=== PATIENT | female | born 1945 | race Caucasian/White ===

== ENCOUNTER 2017-02-27 00:17 | Inpatient (IN) | payer OTHER ==
[~2017-02-27] VITALS: Ht 175.3 cm; Wt 99.3 kg
--- NOTE | ~2017-02-27 | H ---
[facility] [place] [address] HISTORY AND PHYSICAL Name: PABLO CORDOBA Room #: 535-P ADM IN M.R.#: [id number] Admission: 02/28/17 Attend Phys: Jian Christianson DO Discharge: Date of : 47 Report #: [id number] THIS REPORT FOR: //name// CC: VICKI Lizama DATE OF SERVICE: 02/27/2017 ATTENDING PHYSICIAN: Cody Lizama MD. PRIMARY CARE PHYSICIAN: Dr. Vicki Nelson. CHIEF COMPLAINT: Right-sided rib pain after a fall. HISTORY OF PRESENT ILLNESS: The patient is a 71-year-old female who went outside last night around 11:00 p.m. to clean off her air conditioner. She did not think that it was cooling well enough and thought the vents might be dirty, so she was hosing off the air conditioner and she slipped and fell. Her face hit the air conditioner, but she landed on her right side on the air conditioner hose. She immediately had pain on the right side and felt like she could not breathe. Any movement made her pain worse. She normally does not fall or have problems ambulating. In the ER, she was evaluated. She did not lose consciousness. She continued to have significant pain even after oral pain meds in the ER, so she was admitted for pain control. PAST MEDICAL HISTORY: COPD, migraines, and hyperlipidemia. PAST SURGICAL HISTORY: Right ankle repair. ALLERGIES: None. HOME MEDICATIONS: Spiriva and propranolol 10 mg p.o. daily, and simvastatin 40 mg p.o. at bedtime. SOCIAL HISTORY: The patient is an ex-smoker, having quit 34 years ago after smoking for about 10 years. Denies any regular alcohol use. Denies drug use. She lives at home with her spouse. 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 FAMILY HISTORY: The patient denies any pertinent family history including diabetes, cancer, heart disease or strokes. REVIEW OF SYSTEMS: Twelve-point review of systems was reviewed with the patient, otherwise negative unless stated in the HPI. PHYSICAL EXAMINATION: GENERAL: The patient is an alert female, in no acute distress. [address] [address] HISTORY AND PHYSICAL Name: PABLO CORDOBA Room #: 535-P [facility].#: [id number] Admission: 02/28/17 Attend Phys: Jian Christianson DO Discharge: Date of : 47 Report #: [id number] VITAL SIGNS: Temperature is 37.2, heart rate 70, respirations 16, blood pressure is 177/106, and oxygen 97% on room air. HEENT: PERRLA. Sclerae are nonicteric. Oral mucosa is pink and moist. She does have a small abrasion on the right side of her nose, but there is no open wound. NECK: Supple, no JVD noted. CARDIAC: Normal S1, S2. No murmurs, rubs or gallops. RESPIRATORY: Breath sounds are clear, bilateral upper lobes. She is slightly diminished in both lower lobes, but she is breathing very shallow. She is very tender over the right lateral ribs. ABDOMEN: Soft, nontender, nondistended with positive bowel sounds. VASCULAR: No edema noted. Pedal pulses are 2+. NEUROLOGIC: The patient is alert and oriented x3. Speech is clear. She is moving all extremities equally. No focal neuro deficits noted. SKIN: Intact. No rashes or lesions. LABS AND DIAGNOSTICS: All labs were normal except for WBC of 12.0. Alcohol level is less than 10. X-ray of the ribs showed multiple right rib fractures, at least 3 on the right lateral and one is 100% displaced and other is at least 50% displaced. There is no pneumothorax. ASSESSMENT AND PLAN: 1. Acute right rib fractures, status post fall. The patient does have significant displacement and is having problems with pain control. We will continue with IV pain meds and oral pain meds until her pain has improved. We will encourage incentive spirometry for pneumonia prevention as well as activity. 2. Chronic respiratory failure due to chronic obstructive pulmonary disease. This is stable. Add some breathing treatments. No signs of exacerbation. 3. Deep venous thrombosis prophylaxis. Place SCDs. We will continue to follow the patient closely throughout the hospitalization and make changes based on clinical status. <ELECTRONICALLY SIGNED> By: RICHARD Blunt 03/01/17 [id number] RICHARD Blunt /nt
[2017-02-27 00:18] VITALS: BP 185/117
[2017-02-27] MEDS ORDERED: PROPRANOLOL 1010 MG PO (00:34)
[2017-02-27] MEDS ORDERED: SIMVASTATIN40 MG PO (00:35)
[2017-02-27 02:37] LABS: HEMATOCRIT 38.3 % (37.0-47.0); HEMOGLOBIN 12.7 gm/dL (12.0-15.0); MCH 28.4 pg (26.0-34.0); MCV 86.1 fL (80.0-100.0); RBC 4.45 mil/uL (4.20-5.00); RDW 13.9 % (10.5-14.5)
[2017-02-27 02:51] LABS: APTT 25.4 Seconds (24.5-32.8); CALCIUM 9.2 mg/dL (8.5-10.1); POTASSIUM 4.1 mmol/L (3.5-5.1); PROTIME 9.9 Seconds (9.3-11.4)
[2017-02-27 02:55] LABS: ALBUMIN 3.8 g/dL (3.4-5.0); TOTAL BILIRUBIN 0.3 mg/dL (<0.1-1.0); TOTAL PROTEIN 6.5 g/dL (6.4-8.2)
[2017-02-27 03:01] VITALS: BP 141/75
[2017-02-27] MEDS ORDERED: TROSPIUM CHLORI20 MG PO (14:00)
[2017-02-27] MEDS ORDERED: PROZAC20 MG PO (14:01)
[2017-02-27] MEDS ORDERED: WELLBUTRIN 100100 MG PO (14:01)
[2017-02-27] MEDS ORDERED: SPIRIVA INH (14:05)
[2017-02-27 19:45] VITALS: BP 130/82
[2017-02-28 04:17] VITALS: BP 141/74
[2017-02-28 04:20] VITALS: BP 127/61
[2017-02-28 04:57] LABS: HEMATOCRIT 34.8 % (37.0-47.0); HEMOGLOBIN 11.6 gm/dL (12.0-15.0); MCH 29.2 pg (26.0-34.0); MCHC 33.4 g/dL (28.0-37.0); MCV 87.2 fL (80.0-100.0); RBC 3.99 mil/uL (4.20-5.00); RDW 13.8 % (10.5-14.5)
[2017-02-28 07:20] VITALS: BP 145/64
[2017-02-28 11:23] LABS: HEMATOCRIT 34.5 % (37.0-47.0); HEMOGLOBIN 11.6 gm/dL (12.0-15.0)
[2017-02-28 15:15] VITALS: BP 159/81
[2017-02-28 17:14] LABS: HEMATOCRIT 34.4 % (37.0-47.0); HEMOGLOBIN 11.5 gm/dL (12.0-15.0)
[2017-02-28 20:52] VITALS: BP 150/59
[2017-02-28 23:12] LABS: HEMATOCRIT 33.1 % (37.0-47.0); HEMOGLOBIN 10.9 gm/dL (12.0-15.0)
[2017-03-01 05:21] LABS: HEMATOCRIT 31.5 % (37.0-47.0); HEMOGLOBIN 10.7 gm/dL (12.0-15.0); MCH 29.2 pg (26.0-34.0); MCHC 33.9 g/dL (28.0-37.0); MCV 86.4 fL (80.0-100.0); PLATELET COUNT 116 thou/uL (150-400); RBC 3.65 mil/uL (4.20-5.00); RDW 13.5 % (10.5-14.5); WBC 7.7 thou/uL (4.0-11.0)
[2017-03-01 05:26] LABS: MANUAL DIFF YES
[2017-03-01 05:27] VITALS: BP 157/85
[2017-03-01 05:29] LABS: CALCIUM 8.9 mg/dL (8.5-10.1); CREATININE 0.6 mg/dL (0.6-1.0); POTASSIUM 3.8 mmol/L (3.5-5.1)
[2017-03-01 06:55] LABS: ABSOLUTE NEUTROPHILS 6.2 thou/uL (1.4-8.2); ANISOCYTOSIS SLIGHT; TOTAL CELL COUNT 100
[2017-03-01 08:24] VITALS: BP 135/70
[2017-03-01 10:58] LABS: HEMATOCRIT 30.9 % (37.0-47.0); HEMOGLOBIN 10.5 gm/dL (12.0-15.0)
[2017-03-01 17:45] LABS: HEMATOCRIT 33.1 % (37.0-47.0); HEMOGLOBIN 11.1 gm/dL (12.0-15.0)
[2017-03-01 19:35] VITALS: BP 148/82
[2017-03-01 23:34] LABS: HEMATOCRIT 29.7 % (37.0-47.0)
[2017-03-02 04:03] VITALS: BP 162/97
[2017-03-02 04:18] VITALS: BP 172/85
[2017-03-02 06:21] LABS: HEMOGLOBIN 10.2 gm/dL (12.0-15.0)
[2017-03-02 07:48] VITALS: BP 167/93
[2017-03-02] MEDS ORDERED: HYDROCODON-ACE1 EAC7 PO (10:51)
[2017-03-02 11:30] LABS: HEMATOCRIT 34.1 % (37.0-47.0); HEMOGLOBIN 11.4 gm/dL (12.0-15.0)
[2017-03-02 12:10] VITALS: BP 167/93
[2017-03-02 15:33] VITALS: BP 144/90
[2017-03-02] MEDS ORDERED: PERCOCET PO (16:45)
== END 2017-03-02 17:10 | disposition home health service (06) | DRG 184 ==
LOC: ER 00:17 → 5S 02:27 → EROBS 02:27 → 5S 03:03
PROVIDERS: Emergency Medicine; Family Medicine; Hospitalist; Nurse Practitioner Acute Care
DX: S22.41XA Multiple fractures of ribs, right side, initial encounter for closed fracture (principal); N17.9 Acute kidney failure, unspecified; J96.10 Chronic respiratory failure, unspecified whether with hypoxia or hypercapnia; J44.9 Chronic obstructive pulmonary disease, unspecified; G43.909 Migraine, unspecified, not intractable, without status migrainosus; E78.5 Hyperlipidemia, unspecified; F32.9 Major depressive disorder, single episode, unspecified; K21.9 Gastro-esophageal reflux disease without esophagitis; M19.90 Unspecified osteoarthritis, unspecified site; W18.39XA Other fall on same level, initial encounter; Y93.89 Activity, other specified; Z90.710 Acquired absence of both cervix and uterus; Z90.49 Acquired absence of other specified parts of digestive tract; Z87.891 Personal history of nicotine dependence; Y92.89 Other specified places as the place of occurrence of the external cause; Y99.8 Other external cause status
CPT/HCPCS: 10086